=== PATIENT | female | born 2000 | race Caucasian/White ===

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

== ENCOUNTER 2019-05-09 03:10 | Emergency (ER) | payer BC ==
[2019-05-09] MEDS ORDERED: Iopamidol 612 MG/ML 100 ML Bottle IVPUSH ONE (03:26)
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
[2019-05-09 03:59] LABS: ANION GAP 16.8; CHLORIDE,CL 106 mmol/L (101-111); SODIUM,NA 143 mmol/L (135-145)
== END 2019-05-09 05:35 | disposition home or self-care (01) ==
LOC: DL.ED 03:10
DX: S06.0X1A Concussion with loss of consciousness of 30 minutes or less, initial encounter (principal); S02.40DA Maxillary fracture, left side, initial encounter for closed fracture; S90.812A Abrasion, left foot, initial encounter; V59.9XXA Occupant (driver) (passenger) of pick-up truck or van injured in unspecified traffic accident, initial encounter; Y92.488 Other paved roadways as the place of occurrence of the external cause
CPT/HCPCS: 36415; 70450; 70486; 71260; 72125; 74177; 80053; 81003; 84703; 85025; 96365; 99284; J0696; J7050; Q9967

== ENCOUNTER 2019-08-26 01:10 | Emergency (ER) | payer BC ==
[2019-08-26] MEDS ORDERED: MVI, Adult with Vitamin K 10 ML, Folic Acid 1 MG, Thiamine 100 MG in Lactated Ringers 1... IV ONE ×4 (01:16)
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
[2019-08-26 02:20] LABS: ANION GAP 16.1 mEq/L (7-13); CHLORIDE,CL 105 mmol/L (98-107); SODIUM,NA 144 mmol/L (136-145)
== END 2019-08-26 03:45 | disposition home or self-care (01) ==
LOC: DL.ED 01:10
DX: F41.0 Panic disorder [episodic paroxysmal anxiety] (principal); F10.129 Alcohol abuse with intoxication, unspecified; M79.622 Pain in left upper arm; R07.81 Pleurodynia; Y90.6 Blood alcohol level of 120-199 mg/100 ml
CPT/HCPCS: 36415; 71101-LT; 80053; 80305-QW; 80307; 81001; 81025; 85025; 96365; 99285-25; J3411; J3490; J7120

== ENCOUNTER 2020-12-14 04:13 | Emergency (ER) | payer BC ==
--- NOTE | 2020-12-14 04:30 | EDM.PDOC ---
ED HPI GENERAL MEDICAL PROBLEM - General Chief Complaint: Chest Pain Stated Complaint: CHEST PAIN Time Seen by Provider: 12/14/20 04:31 Source of Information: Reports: Patient, RN History Limitations: Reports: No Limitations - History of Present Illness INITIAL COMMENTS - FREE TEXT/NARRATIVE: ED with c/o right sided chest pain , sharp radiating to back waking her from sleep [employer], Has not tried anything to alleviate pain, States pain better in chest but still present in back, No SOB No fever, No cough, no nausea. Last BM today. No prior episodes. no hx known GB disease, current non smoker. ON OCP , LMP one week ago. No hx blood clots. Right Chest Pain Score (Numeric/FACES): 9 - Related Data Allergies Allergy/AdvReac Type Severity Reaction Status Date / Time No Known Allergies Allergy Verified 12/14/20 04:23 Home Meds: Home Meds norgestimate-ethinyl estradioL [[place]-Linyah 28 Tablet] 1 tab PO DAILY 05/09/19 [History] Past Medical History - Past Health History Medical/Surgical History: Denies Medical/Surgical History Dermatologic History: Reports: Eczema, Other (See Below) Other Dermatologic History: ACNE - Infectious Disease History Infectious Disease History: Reports: Chicken Pox Social & Family History - Family History Family Medical History: No Pertinent Family History - Caffeine Use Caffeine Use: Reports: Soda ED ROS GENERAL - Review of Systems Review Of Systems: Comprehensive ROS is negative, except as noted in HPI. ED EXAM, GENERAL - Physical Exam Exam: See Below Exam Limited By: No Limitations General Appearance: Alert, Anxious, Mild Distress Eye Exam: Bilateral Eye: EOMI Ears: Normal External Exam Nose: Normal Inspection Throat/Mouth: Normal Inspection Head: Atraumatic, Normocephalic Neck: Normal Inspection Respiratory/Chest: No Respiratory Distress, Lungs Clear, Normal Breath Sounds, Chest Non-Tender Cardiovascular: Normal Peripheral Pulses, Regular Rate, Rhythm GI/Abdominal: Normal Bowel Sounds, Soft, Non-Tender Back Exam: Normal Inspection. No: CVA Tenderness (L), CVA Tenderness (R), Paraspinal Tenderness, Vertebral Tenderness Extremities: Normal Inspection Neurological: Alert, Oriented, Normal Cognition Psychiatric: Normal Affect Skin Exam: Warm, Dry, Intact, Normal Color #1 Interpretation EKG Date: 12/14/20 Time: 04:26 Rhythm: NSR Rate (Beats/Min): 83 [place]: Normal P-Wave: Present QRS: Normal ST-T: Normal QT: Normal Comparison: NA - No Prior EKG Course - Vital Signs Last Recorded V/S: Last Vital Signs Temp 97.6 F 12/14/20 04:17 Pulse 98 12/14/20 04:17 Resp 20 12/14/20 04:17 BP 140/78 12/14/20 04:17 Pulse Ox 98 12/14/20 04:17 - Orders/Labs/Meds Orders: Active Orders 24 hr Category Date Time Status EKG Documentation Completion [RC] STAT Care 12/14/20 04:25 Active CXR [Chest 1V Frontal] [CR] Urgent Exams 12/14/20 05:13 Taken DRUG SCREEN URINE BIORAD [URCHEM] Stat Lab 12/14/20 04:25 Ordered Labs: Laboratory Tests 12/14/20 12/14/20 12/14/20 Range/Units 04:35 04:35 04:35 WBC 11.1 H (5.0-10.0) 10^3/uL RBC 4.43 (4.2-5.4) 10^6/uL Hgb 13.3 (12.0-16.0) g/dL Hct 40.1 (37.0-47.0) % MCV 90.5 (80-100) fL MCH 30.0 (27.0-34.0) pg MCHC 33.2 (33.0-35.0) g/dL Plt Count 479 H (150-450) 10^3/uL Neut % (Auto) 53.9 (42.2-75.2) % Lymph % (Auto) 39.9 (20.5-50.1) % [place] % (Auto) 5.6 (2-8) % Eos % (Auto) 0.4 L (1.0-3.0) % Baso % (Auto) 0.2 (0.0-1.0) % D-Dimer, Quantitative < 100 (0-400) ng/mL Sodium 140 (136-145) mmol/L Potassium 3.6 (3.5-5.1) mmol/L Chloride 103 (98-107) mmol/L Carbon Dioxide 25 (21-32) mmol/L Anion Gap 15.6 H (7-13) mEq/L BUN 11 (7-18) mg/dL Creatinine 0.93 (0.55-1.02) mg/dL Est Cr Clr Drug Dosing 99.16 mL/min Estimated GFR (MDRD) > 60 BUN/Creatinine Ratio 11.8 (No establ ref range) Glucose 103 H (70-99) mg/dL Calcium 9.1 (8.5-10.1) mg/dL Total Bilirubin 0.3 (0.2-1.0) mg/dL AST 19 (15-37) U/L ALT 19 (14-59) U/L Alkaline Phosphatase 106 (46-116) U/L Troponin I High Sens < 4 (<=51) pg/mL C-Reactive Protein 1.2 H (0.0-0.9) mg/dL Total Protein 7.2 (6.4-8.2) g/dL Albumin 3.7 (3.4-5.0) g/dL Globulin 3.5 Albumin/Globulin Ratio 1.1 Amylase 18 L (25-115) U/L Lipase 51 L (73-393) U/L HCG, Qual Negative Meds: Medications Discontinued Medications Generic Name Dose Route Start Last Admin Trade Name Freq PRN Reason Stop Dose Admin Ketorolac Tromethamine 30 mg 12/14/20 05:14 12/14/20 05:24 Ketorolac 30 Mg/Ml Sdv IVPUSH 12/14/20 05:15 30 mg ONETIME ONE Administration Ondansetron HCl 4 mg 12/14/20 05:14 12/14/20 05:22 Ondansetron 4 Mg/2 Ml Sdv IVPUSH 12/14/20 05:15 4 mg ONETIME ONE Administration Departure - Departure Time of Disposition: 06:34 Disposition: Home, Self-Care 01 Condition: Good Clinical Impression: Non-cardiac chest pain Instructions: Pleurodynia Forms: ED Department Discharge Care Plan Goals: alternate tylenol 500mg and ibuprofen 600mg every 4 hours as needed for discomfort- take ibuprofen with food follow up if symptoms worsen, difficulty breathing low fat bland diet, limit caffeine Sepsis Event Note (ED) - Evaluation Sepsis Screening Result: No Definite Risk - Focused Exam Vital Signs: Vital Signs Temp Pulse Resp BP Pulse Ox 12/14/20 04:17 97.6 F 98 20 140/78 98 - My Orders Last 24 Hours: My Active Orders 12/14/20 04:25 EKG Documentation Completion [RC] STAT DRUG SCREEN URINE BIORAD [URCHEM] Stat 12/14/20 05:13 CXR [Chest 1V Frontal] [CR] Urgent - Assessment/Plan Last 24 Hours: My Active Orders 12/14/20 04:25 EKG Documentation Completion [RC] STAT DRUG SCREEN URINE BIORAD [URCHEM] Stat 12/14/20 05:13 CXR [Chest 1V Frontal] [CR] Urgent
[2020-12-14 05:05] LABS: ANION GAP 15.6 mEq/L (7-13); CHLORIDE,CL 103 mmol/L (98-107); SODIUM,NA 140 mmol/L (136-145)
[2020-12-14] MEDS ORDERED: Ketorolac 30 MG/ML SDV IVPUSH ONE (05:14)
[2020-12-14] MEDS ORDERED: Ondansetron 4 MG/2 ML SDV IVPUSH ONE (05:14)
--- NOTE | 2020-12-14 07:11 | CR ---
PROCEDURE INFORMATION: Exam: XR Chest Exam date and time: 12/14/2020 5:34 AM Age: 20 years old Clinical indication: Pain; Chest pressure; Additional info: Right chest pain TECHNIQUE: Imaging protocol: XR of the chest. Views: 1 view. COMPARISON: CR Ribs 2V w Chest Lt 08/26/2019 2:44 AM FINDINGS: Lungs: Poor inspiration. Decreased lung volumes. No pneumonia or pulmonary edema. Pleural spaces: No pleural effusion or pneumothorax. Heart/Mediastinum: The cardiac silhouette is not enlarged. The mediastinal contours are normal. Bones/joints: No acute osseous abnormality. IMPRESSION: No acute abnormality.
== END 2020-12-14 06:44 | disposition home or self-care (01) ==
LOC: DL.ED 04:13
DX: R07.89 Other chest pain (principal)
CPT/HCPCS: 36415; 71045; 80053; 82150; 83690; 84484; 84703; 85025; 85379; 86140; 93005; 96374; 96375; 99285; J1885; J2405

== ENCOUNTER 2023-12-27 21:24 | Emergency (ER) | payer BC, MEDICAID ==
[2023-12-27 23:51] LABS: APPEARANCE,URINE CLEAR (CLEAR); BILIRUBIN,URINE NEGATIVE (NEGATIVE); COLOR,URINE YELLOW (YELLOW); GLUCOSE,URINE NEGATIVE (NEGATIVE); KETONES,URINE NEGATIVE (NEGATIVE); LEUKOCYTE ESTERASE,URINE NEGATIVE (NEGATIVE); NITRITE,URINE NEGATIVE (NEGATIVE); OCCULT BLOOD,URINE TRACE-LYSED (NEGATIVE); PH,URINE 5.5 (5.0-9.0); PROTEIN,URINE NEGATIVE (NEGATIVE); UROBILINOGEN,URINE 0.2 mg/dL (0.2-1.0)
[2023-12-28 00:08] LABS: BACTERIA,URINE MODERATE /HPF (0-FEW/HPF); EPITHELIAL CELLS,URINE MANY /HPF (NOT SEEN); WBC,URINE 0-5 /HPF (0-5/HPF)
[2023-12-28 00:46] LABS: BASOPHILS PERCENT AUTO 0.1 % (0.0-1.0); EOSINOPHILS PERCENT AUTO 1.4 % (1.0-3.0); HEMATOCRIT 40.2 % (37.0-47.0); HEMOGLOBIN 13.2 g/dL (12.0-16.0); LYMPHOCYTES PERCENT AUTO 27.1 % (20.5-50.1); MEAN CORPUSCULAR HEMOGLOBIN 30.3 pg (27.0-34.0); MEAN CORPUSCULAR HGB CONC 32.8 g/dL (33.0-35.0); MEAN CORPUSCULAR VOLUME 92.2 fL (80-100); MONOCYTES PERCENT AUTO 6.7 % (2-8); NEUTROPHILS PERCENT AUTO 64.7 % (42.2-75.2); PLATELET COUNT,PLT 439 10^3/uL (150-450); RED BLOOD CELL COUNT 4.36 10^6/uL (4.2-5.4); WHITE BLOOD CELL COUNT,WBC 10.9 10^3/uL (5.0-10.0)
[2023-12-28 00:48] LABS: A/G RATIO 0.9; ALANINE AMINOTRANSFERASE,ALT 16 U/L (14-59); ALBUMIN 3.5 g/dL (3.4-5.0); ALKALINE PHOSPHATASE 103 U/L (46-116); ASPARTATE AMNIOTRANSFERASE,AST 10 U/L (15-37); BILIRUBIN TOTAL 0.2 mg/dL (0.2-1.0); BLOOD UREA NITROGEN,BUN 15 mg/dL (7-18); BUN/CREATININE RATIO 18.3 (No establ ref range); CALCIUM 8.9 mg/dL (8.5-10.1); CARBON DIOXIDE,CO2 28 mmol/L (21-32); CHLORIDE,CL 104 mmol/L (98-107); CREATININE 0.82 mg/dL (0.55-1.02); GLUCOSE RANDOM 105 mg/dL (70-99); LIPASE 22 U/L (16-77); MAGNESIUM 1.7 mg/dL (1.8-2.4); PROTEIN TOTAL,TP 7.2 g/dL (6.4-8.2); SODIUM,NA 140 mmol/L (136-145)
[2023-12-28 00:53] LABS: ESTIMATED GFR 102 mL/min (>=60)
[2023-12-28] MEDS: Ondansetron 4 MG/2 ML SDV IVPUSH ONE (01:00)
[2023-12-28] MEDS: fentaNYL 100 MCG/2 ML SDV IVPUSH ONE (01:02)
[2023-12-28] MEDS: Lactated Ringers 1,000 ML IV STA (01:03)
[2023-12-28] MEDS: Iopamidol 612 MG/ML 100 ML Bottle IVPUSH ONE (01:19)
[2023-12-28] MEDS: Ketorolac 30 MG/ML SDV IVPUSH ONE (02:25)
[2023-12-28] MEDS ORDERED: Magnesium Citrate Solution 296 ML Bottle PO ONE (03:25)
== END 2023-12-28 03:41 | disposition home or self-care (01) ==
LOC: DL.ED 21:24
DX: K59.00 Constipation, unspecified (principal); E86.0 Dehydration; Z90.49 Acquired absence of other specified parts of digestive tract
CPT/HCPCS: 36415; 74177; 80053; 81001; 81025; 83690; 83735; 85025; 96361; 96374; 96375; 99284; A9270; J1885; J2405; J3010; J7120; Q9967

== ENCOUNTER 2024-06-30 17:26 | Emergency (ER) | payer BC, MEDICAID ==
[2024-06-30] MEDS: Ibuprofen 600 MG Tab PO ONE (18:08)
[2024-06-30] MEDS: Levofloxacin 500 MG Tab PO ONE (18:59)
== END 2024-06-30 19:02 | disposition home or self-care (01) ==
LOC: DL.ED 17:26
DX: J18.9 Pneumonia, unspecified organism (principal); M54.2 Cervicalgia; Z90.49 Acquired absence of other specified parts of digestive tract
CPT/HCPCS: 71046; 99283; 99284; A9270